=== PATIENT | male | born 1995 | race Caucasian/White ===

== ENCOUNTER 2022-03-28 16:21 | Observation (INO) | payer BC, OTHER ==
[2022-03-28] MEDS ORDERED: Ertapenem 1 GM in Sodium Chloride 0.9% 50 ML IV ONE (16:40)
[2022-03-28] MEDS ORDERED: Lactated Ringers 1,000 ML IV SCH ×2 (16:45→21:00)
[2022-03-28] MEDS ORDERED: Dexmedetomidine 200 MCG/2 ML SDV ONE (17:05)
[2022-03-28] MEDS ORDERED: fentaNYL 100 MCG/2 ML SDV ONE ×2 (17:05→20:10)
[2022-03-28] MEDS ORDERED: Propofol 200 MG/20 ML SDV ONE ×2 (17:05→20:33)
[2022-03-28] MEDS ORDERED: Rocuronium Bromide 50 MG/5 ML Syringe ONE ×2 (17:08→18:59)
[2022-03-28] MEDS ORDERED: Bupivacaine 0.25% 30 ML SDV ONE (17:17)
[2022-03-28 17:28] LABS: CORONAVIRUS COVID-19 NAA NEGATIVE (NEGATIVE); INFLUENZA A NAA NEGATIVE (NEGATIVE); INFLUENZA B NAA NEGATIVE (NEGATIVE)
[2022-03-28] MEDS ORDERED: Bupivacaine 0.5% 30 ML SDV ONE (17:51)
[2022-03-28] MEDS ORDERED: Magnesium Sulfate (4.06 MEQ/ML) 5 GM/10 ML SDV ONE (18:28)
[2022-03-28] MEDS ORDERED: Dexamethasone 4 MG/ML 5 ML MDV ONE (18:29)
[2022-03-28] MEDS ORDERED: Sugammadex Sodium 200 MG/2 ML VIAL ONE (18:57)
[2022-03-28] MEDS ORDERED: Ondansetron 4 MG/2 ML SDV ONE (18:57)
[2022-03-28] MEDS ORDERED: Ketorolac 30 MG/ML SDV ONE (18:57)
[2022-03-28] MEDS ORDERED: Ondansetron 4 MG/2 ML SDV IVPUSH PRN (20:55)
[2022-03-28] MEDS ORDERED: HYDROmorphone 1 MG/ML Syringe IVPUSH PRN (20:55)
[2022-03-28] MEDS ORDERED: Acetaminophen/HYDROcodone 325-5 MG Tab PO PRN (20:55)
[2022-03-28] MEDS: Piperacillin/Tazobactam 3.375 GM in Sodium Chloride 0.9% 50 ML IV SCH (21:51)
[2022-03-29] MEDS: Piperacillin/Tazobactam 3.375 GM in Sodium Chloride 0.9% 50 ML IV SCH ×2 (03:40→09:02)
== END 2022-03-29 12:50 | disposition home or self-care (01) ==
LOC: MW.ED 16:21 → MW.MS 17:29
PROVIDERS: ADMIT Surgery; ATTEND Surgery
DX: K35.80 Unspecified acute appendicitis (principal); U07.1 COVID-19; Z98.890 Other specified postprocedural states; Z79.899 Other long term (current) drug therapy; Z20.822 Contact with and (suspected) exposure to COVID-19
CPT/HCPCS: 0240U; 44970; 96365; 99284; A9270; J0131; J1100; J1335; J1885; J2543; J2704; J3010; J3475; J3490; J7030; J7050; J7120; 00840; 64488; 99285; J2405